=== PATIENT | female | born 1960 | race Caucasian/White ===

== ENCOUNTER 2018-06-09 10:32 | Day surgery (SDC) | payer BC ==
[2018-06-07 16:58] VITALS: BMI 26.4
[~2018-06-09 10:32] MED LIST: LACTATED RINGERS SOLUTION 1,000 ML IV SCH; ONDANSETRON 4 MG/2 ML VIAL IVPUSH PRN
--- NOTE | 2018-06-09 11:13 | HP ---
Satellite [facility] - Chief Complaint Chief Complaint: left knee pain - Past Medical History Allergies/Adverse Reactions: Allergies Allergy/AdvReac Type Severity Reaction Status Date / Time No Known Allergies Allergy Verified 06/09/18 11:06 - Current Medications Current Medications: Home Medications Medication Instructions Recorded Oxycodone HCl/Acetaminophen 1 tab PO Q6H #20 tablet MDD 4 06/09/18 [Percocet 5-325 mg Tablet] Satellite Physical Exam - Physical Examination Vital Signs: Vital Signs Period Temp Pulse Resp BP Sys/Sin Pulse Ox Last 24 Hr 97.6 F 70 16 108/66 99 General Appearance: Well Nourished, Well Developed, Alert & Oriented x3 ENT: Clear Lung: Normal air movement Heart: Regular rate & rhythm Extremities: Other (left knee- + swelling, + ttp, decr rom, + mcmurrays, nvi MRI +mt) Neurological: Intact, Alert, Oriented Satellite Impression/Plan - Impression/Plan Impression: left knee internal derangement Operative Procedure: left knee arthroscopy Date to be Performed: 06/09/18
[2018-06-09] MEDS ORDERED: BUPIVACAINE HCL/PF 0.5% (5MG/ML) 10 ML VIAL ONE (11:16)
[2018-06-09] MEDS ORDERED: MIDAZOLAM HCL 2 MG/2 ML SINGLE DOSE VIAL ONE (12:14)
[2018-06-09] MEDS ORDERED: LIDOCAINE HCL/PF 2% SDV 5ML VIAL ONE (12:16)
[2018-06-09] MEDS ORDERED: PROPOFOL 20 ML ONE (12:16)
[2018-06-09] MEDS ORDERED: SUCCINYLCHOLINE CHLORIDE 200 MG/10 ML VIAL ONE (12:17)
[2018-06-09] MEDS ORDERED: DEXAMETHASONE SOD PHOSPHATE 4 MG/1 ML VIAL ONE (12:25)
[2018-06-09] MEDS ORDERED: ceFAZolin SODIUM 1 GM VIAL IVPB ONE (12:26)
[2018-06-09] MEDS ORDERED: ceFAZolin SODIUM 1 GM VIAL ONE (12:28)
[2018-06-09] MEDS ORDERED: BUPIVACAINE HCL/PF (5 MG/ML) 30 ML VIAL IJ ONE (12:44)
[2018-06-09] MEDS ORDERED: KETOROLAC TROMETHAMINE 30 MG/1 ML VIAL ONE (13:05)
[2018-06-09] MEDS ORDERED: ACETAMINOPHEN 1000 MG/100 ML VIAL (NON FORMULARY) IVPB ONE (13:13)
--- NOTE | 2018-06-09 13:24 | OP ---
Operative Note - Note: Operative Date: 06/09/18 Pre-Operative Diagnosis: left knee medial meniscus tear, OA Operation: left knee arthroscopy, partial medial meniscectomy, debridement chondroplasty Post-Operative Diagnosis: Same as Pre-op Surgeon: Cuauhtemoc Acevedo Anesthesiologist/SHOT HOLE SHOOTER: Arnulfo Holden Anesthesia: General, Local Specimens Removed: shavings Estimated Blood Loss (mls): 0 Blood Volume Replaced (mls): 0 Fluid Volume Replaced (mls): 500 Operative Report Dictated: Yes
[2018-06-09] MEDS ORDERED: ACETAMINOPHEN INJECTION 100 ML IVPB ONE (13:33)
--- NOTE | 2018-06-09 14:16 | OP ---
DATE OF OPERATION: 06/09/2018 PREOPERATIVE DIAGNOSES: Left knee pain, medial meniscus tear and osteoarthritis. POSTOPERATIVE DIAGNOSES: Left knee pain, medial meniscus tear and osteoarthritis. PROCEDURE: Left knee arthroscopy, partial medial meniscectomy and debridement chondroplasty. SURGEON: Tee Roque MD COMPANY TRUCK DRIVER: None. RECEIPT AND REPORT CLERK: Arnulfo Holden CRNA ANESTHESIA: LMA anesthesia. DRAINS: None. COMPLICATIONS: None. SPECIMENS: Arthroscopic shavings. BLOOD LOSS: None. BLOOD GIVEN: None. FLUID REPLACEMENT: 700 mL. INDICATIONS: This patient is a 58-year-old female with a preoperative diagnosis of left knee pain, medial meniscus tear and osteoarthritis. After understanding the potential risks, complications, alternatives and benefits of surgical versus nonsurgical treatment the patient elected to undergo this procedure. DESCRIPTION OF PROCEDURE: The patient was brought to the operating room. Peripheral IV placed and IV sedation given. IV Ancef 1 g was given. LMA anesthesia was induced. Webril was placed around the left thigh. Styrofoam was applied. The left lower extremity was prepped and draped in sterile fashion, elevated, exsanguinated with an Esmarch bandage, tourniquet inflated to 250 mmHg. Superomedial outflow portal was established. A lateral portal was established and an arthroscope was introduced into the left knee. Under direct visualization using a spinal needle a medial portal was established. Diagnostic arthroscopy was performed. Patient was seen to have a complex shredded tear of the body and posterior horn of the medial meniscus as well as significant wide shredded areas of grade 2 arthritis transitioning into grade 3 and then grade 4. There was an area of exposed bone which was rectangular but about the width of a dime and length of a quarter on the medial femoral condyle. Debridement chondroplasty was performed and a partial medial meniscectomy was performed using a straight basket forceps, a left biter and a curved shaver. Photographs were taken before and after. There was a lot of synovitis and fibrotic bands in the notch and anterior to the ACL. These were removed. The ACL looked good and had the appropriate tension. There was synovitis which was removed. The lateral compartment was inspected. The patient had grade 1 osteoarthritis, some synovitis which was removed, but the lateral meniscus looked good as did the articular cartilage. The patellofemoral joint was inspected. The patient had significant areas of grade 2, grade 3 and grade 4 arthritis especially on the undersurface of the patella. The trochlea had areas of grade 2 to grade 3 arthritis and grooving. A debridement chondroplasty was performed. Patient also had a lot of synovitis and excessive fat pad and fibrotic tissue which were all removed. The area was copiously irrigated and washed out, the knee put through a range of motion. Excess saline was removed. The arthroscopy portals closed with 3-0 nylon sutures. Marcaine 0.5%, 20 mL, was introduced into the joint. The area was then washed and dried. Covered with Xeroform, 4 x 4, Webril and an Rigoberto bandage. Tourniquet was taken down after a total tourniquet time of 29 minutes. There were no complications during the case. The patient tolerated her procedure well and was brought to the ambulatory recovery room in stable condition. TEE ROQUE M.D. [id number]
[2018-06-09 14:29] VITALS: TEMP 98.9
[2018-06-09 15:51] VITALS: BP 100/60; PULSE 78
--- NOTE | 2018-06-14 09:31 | PATH ---
Surgical Pathology Report Patient Name: SHIVANI THOMAS [facility]. Rec. #: [id number] /Age/Gender: 1960 (Age: 58) / F Account: [id number] Location: [facility] SURGICAL Taken: 06/09/2018 Received: 06/09/2018 Reported: 06/14/2018 Physicians: Cuauhtemoc Acevedo M.D. Specimen(s) Received LEFT KNEE SHAVINGS Clinical History Left knee tear Final Diagnosis KNEE SHAVINGS, LEFT, ARTHROSCOPY, PARTIAL MEDIAL MENISCECTOMY, DEBRIDEMENT CHONDROPLASTY: FRAGMENTS OF CARTILAGE, DENSE FIBROCONNECTIVE TISSUE, ADIPOSE TISSUE, SKELETAL MUSCLE, AND SYNOVIUM. Electronically Signed Denia Holcomb M.D. Gross Description Received in formalin, labeled "left knee shavings," is a 5.5 x 5.0 x 0.8 cm. aggregate of baez-yellow soft tissue fragments. A financial services sales representative portion is submitted in one cassette. 06/09/2018 [facility]
== END 2018-06-09 16:00 | disposition home or self-care (01) ==
LOC: JASU-SURG 10:32
PROVIDERS: ATTEND Orthopaedic Surgery
PROC: 0SBD4ZZ Excision of Left Knee Joint, Percutaneous Endoscopic Approach (ICD-10-PCS; principal; 2018-06-09 12:00)
DX: S83.232A Complex tear of medial meniscus, current injury, left knee, initial encounter (principal); X58.XXXA Exposure to other specified factors, initial encounter; Y93.89 Activity, other specified; Y92.9 Unspecified place or not applicable; Y99.9 Unspecified external cause status; M17.12 Unilateral primary osteoarthritis, left knee; M25.562 Pain in left knee
CPT/HCPCS: 88304-TC; 94760; 97116-GP; J0131